=== PATIENT | male | born 1970 | race African-American/Black ===

== ENCOUNTER 2017-07-16 21:13 | Inpatient (IN) ==
[2017-07-17] MEDS ORDERED: ONDANSETRON 4 MG/2 ML VIAL IV STA (00:10)
[2017-07-17] MEDS ORDERED: SODIUM CHLORIDE 0.9% 1,000 ML IV STA (00:10)
[2017-07-17] MEDS ORDERED: MORPHINE 2 MG/1 ML SYRINGE IV STA (00:10)
[2017-07-17] MEDS ORDERED: ONDANSETRON 4 MG/2 ML VIAL ONE (00:39)
[2017-07-17] MEDS ORDERED: MORPHINE 2 MG/1 ML SYRINGE ONE (00:39)
[2017-07-17 01:09] LABS: Basophils % 0.3 % (0.0-0.8); Hematocrit 41.1 VOL% (42.0-52.0); Hemoglobin 13.8 GM/DL (14.0-18.0); Immature Granulocytes % 0.4 %; Immature Granulocytes Absolute 0.05 #; Lymphocytes # 0.6 10*3/uL (1.4-4.0); Lymphocytes % 4.6 % (21.2-54.2); Mean Corpuscular HGB Conc 33.6 GM/DL (32-36); Mean Corpuscular Hemoglobin 30 PG (27-34); Mean Corpuscular Volume 88.6 FL (87-102); Mean Platelet Volume 11.9 FL (9.6-12.0); Monocytes # 0.4 10*3/uL (0.11-0.8); Monocytes % 3.2 % (1.7-12.7); Neutrophils # 12.2 10*3/uL (1.4-7.4); Neutrophils % 91.5 % (38.7-73.9); Platelet Count 203 T/CUMM (130-400); Red Blood Count 4.64 MC/CUMM (3.8-5.5); Red Cell Distribution Width 13.4 % (9.3-17.3); White Blood Count 13.3 T/CUMM (4-12)
[2017-07-17 02:01] LABS: Band Neutrophils 3 % (0-10); Lymphocytes 5 % (20-55); Segmented Neutrophils 91 % (50-85); Total Cells Counted 100
[2017-07-17 02:02] LABS: Hypochromasia 2+; Platelet Estimate Normal
[2017-07-17 03:20] LABS: Albumin 3.8 G/DL (3.4-5.0); Bilirubin,Total 1.1 MG/DL (0.2-1.0); Calcium 8.7 MG/DL (8.5-10.1); Osmolality,Calculated 280.3 MOS/KG (273-304); Potassium 4.1 MMOL/L (3.5-5.1); Total Protein 7.1 G/DL (6.4-8.3)
[2017-07-17] MEDS ORDERED: HYDROmorphone 2 MG/1 ML VIAL IV STA (03:34)
[2017-07-17] MEDS ORDERED: HYDROmorphone 2 MG/1 ML VIAL ONE (03:51)
[2017-07-17] MEDS ORDERED: hydrALAZINE 20 MG/1 ML VIAL IV STA (04:27)
[2017-07-17] MEDS ORDERED: hydrALAZINE 20 MG/1 ML VIAL ONE (04:31)
[2017-07-17] MEDS: SODIUM CHLORIDE 0.9% 1,000 ML IV SCH ×2 (04:51→12:32)
[2017-07-17 06:45] LABS: Basophils % 0.4 % (0.0-0.8); Hematocrit 35.4 VOL% (42.0-52.0); Hemoglobin 11.6 GM/DL (14.0-18.0); Immature Granulocytes % 0.3 %; Immature Granulocytes Absolute 0.03 #; Lymphocytes # 1.5 10*3/uL (1.4-4.0); Mean Corpuscular HGB Conc 32.8 GM/DL (32-36); Mean Corpuscular Hemoglobin 29 PG (27-34); Mean Corpuscular Volume 89.8 FL (87-102); Mean Platelet Volume 11.6 FL (9.6-12.0); Monocytes # 0.5 10*3/uL (0.11-0.8); Monocytes % 5.1 % (1.7-12.7); Neutrophils # 8.5 10*3/uL (1.4-7.4); Neutrophils % 80.2 % (38.7-73.9); Platelet Count 163 T/CUMM (130-400); Red Blood Count 3.94 MC/CUMM (3.8-5.5); Red Cell Distribution Width 13.3 % (9.3-17.3); White Blood Count 10.6 T/CUMM (4-12)
[2017-07-17 07:25] LABS: Albumin 3.3 G/DL (3.4-5.0); Bilirubin,Total 1.2 MG/DL (0.2-1.0); Calcium 8.3 MG/DL (8.5-10.1); Potassium 3.8 MMOL/L (3.5-5.1); Total Protein 6.3 G/DL (6.4-8.3)
[2017-07-17] MEDS: MORPHINE 2 MG/1 ML SYRINGE IV PRN ×2 (08:07→13:56)
[2017-07-17] MEDS ORDERED: PANTOPRAZOLE 40 MG TABLET PO SCH (09:00)
[2017-07-17] MEDS: amLODIPine 10 MG TABLET PO SCH (09:07)
[2017-07-17] MEDS: THIAMINE 100 MG TABLET PO SCH (09:07)
[2017-07-17] MEDS: ENOXAPARIN 40 MG/0.4 ML SYRINGE SUBCUT SCH (09:07)
[2017-07-17] MEDS: FOLIC ACID 1 MG TABLET PO SCH (09:07)
[2017-07-17] MEDS: CLORAZEPATE 7.5 MG TABLET PO SCH ×2 (09:07→21:21)
[2017-07-17] MEDS: MULTIVITAMIN (CENTRUM) TABLET PO SCH (09:07)
[2017-07-17 11:36] LABS: Risk Ratio 2.88
[2017-07-17] MEDS: LISINOPRIL 5 MG TABLET PO SCH (12:15)
[2017-07-17] MEDS: PIPERACILLIN/TAZOBACTAM 3,375 MG in SODIUM CHLORIDE 0.9% 100 ML IV SCH ×2 (12:15→19:19)
[2017-07-17 14:51] LABS: Apearance,Urine CLEAR (Clear); Bilirubin,Urine Negative (Negative); Blood, Urine Negative (Negative); Glucose,Urine (UA) Negative (Negative); Ketones,Urine 80 mg/dL (Negative); Mucus,Urine Occasional /LPF (Occasional); Nitrite,Urine Negative (Negative); Protein,Urine Negative; RBC,Urine <1 /HPF (0-4); Urine Color Yellow (Yellow); Urine Specific Gravity 1.018 (1.001-1.035); Urine Urobilinogen < 2.0 EU/DL (0.2-1.0); WBC,Urine 1 /HPF (0-6)
[2017-07-17] MEDS: HYDROmorphone 2 MG/1 ML VIAL IV PRN ×3 (16:11→22:52)
[2017-07-17] MEDS: ONDANSETRON 4 MG/2 ML VIAL IV PRN ×2 (16:11→23:32)
[2017-07-17] MEDS: POTASSIUM CHLORIDE INJ 10 MEQ in LACTATED RINGERS 1,000 ML IV SCH ×2 (18:33→19:20)
[2017-07-17] MEDS: PANTOPRAZOLE 40 MG TABLET PO SCH (21:21)
[2017-07-18] MEDS: POTASSIUM CHLORIDE INJ 10 MEQ in LACTATED RINGERS 1,000 ML IV SCH ×7 (00:04→20:27)
[2017-07-18] MEDS: HYDROmorphone 2 MG/1 ML VIAL IV PRN ×6 (03:30→23:04)
[2017-07-18] MEDS: ONDANSETRON 4 MG/2 ML VIAL IV PRN ×6 (03:40→23:10)
[2017-07-18] MEDS: PIPERACILLIN/TAZOBACTAM 3,375 MG in SODIUM CHLORIDE 0.9% 100 ML IV SCH ×3 (03:41→20:33)
[2017-07-18 06:01] LABS: Basophils % 0.2 % (0.0-0.8); Eosinophils % 0.2 % (0.00-10.9); Hematocrit 38.1 VOL% (42.0-52.0); Hemoglobin 12.2 GM/DL (14.0-18.0); Immature Granulocytes % 0.5 %; Immature Granulocytes Absolute 0.06 #; Lymphocytes # 0.8 10*3/uL (1.4-4.0); Lymphocytes % 6.1 % (21.2-54.2); Mean Corpuscular Hemoglobin 29 PG (27-34); Mean Corpuscular Volume 91.8 FL (87-102); Mean Platelet Volume 12.4 FL (9.6-12.0); Monocytes # 0.8 10*3/uL (0.11-0.8); Monocytes % 6.5 % (1.7-12.7); Neutrophils # 11.3 10*3/uL (1.4-7.4); Neutrophils % 86.5 % (38.7-73.9); Platelet Count 151 T/CUMM (130-400); Red Blood Count 4.15 MC/CUMM (3.8-5.5); Red Cell Distribution Width 13.4 % (9.3-17.3)
[2017-07-18 06:38] LABS: Albumin 3.5 G/DL (3.4-5.0); Bilirubin,Total 1.4 MG/DL (0.2-1.0); Calcium 8.8 MG/DL (8.5-10.1); Osmolality,Calculated 269.8 MOS/KG (273-304); Total Protein 6.4 G/DL (6.4-8.3)
[2017-07-18] MEDS: amLODIPine 10 MG TABLET PO SCH (08:18)
[2017-07-18] MEDS: CLORAZEPATE 7.5 MG TABLET PO SCH ×2 (08:19→20:32)
[2017-07-18] MEDS: PANTOPRAZOLE 40 MG TABLET PO SCH ×2 (08:19→20:32)
[2017-07-18] MEDS: THIAMINE 100 MG TABLET PO SCH (08:19)
[2017-07-18] MEDS: LISINOPRIL 5 MG TABLET PO SCH (08:19)
[2017-07-18] MEDS: FOLIC ACID 1 MG TABLET PO SCH (08:19)
[2017-07-18] MEDS: ENOXAPARIN 40 MG/0.4 ML SYRINGE SUBCUT SCH (08:19)
[2017-07-18] MEDS: MULTIVITAMIN (CENTRUM) TABLET PO SCH (08:19)
[2017-07-19] MEDS: HYDROmorphone 2 MG/1 ML VIAL IV PRN ×6 (03:02→20:33)
[2017-07-19] MEDS: ONDANSETRON 4 MG/2 ML VIAL IV PRN ×2 (03:04→06:49)
[2017-07-19] MEDS: PIPERACILLIN/TAZOBACTAM 3,375 MG in SODIUM CHLORIDE 0.9% 100 ML IV SCH ×3 (03:05→20:31)
[2017-07-19 06:06] LABS: Basophils # 0.1 10*3/uL (0.0-0.2); Basophils % 0.4 % (0.0-0.8); Eosinophils # 0.2 10*3/uL (0.0-0.87); Eosinophils % 1.6 % (0.00-10.9); Hematocrit 34.3 VOL% (42.0-52.0); Hemoglobin 11.2 GM/DL (14.0-18.0); Immature Granulocytes % 0.5 %; Immature Granulocytes Absolute 0.06 #; Lymphocytes # 1.1 10*3/uL (1.4-4.0); Mean Corpuscular HGB Conc 32.7 GM/DL (32-36); Mean Corpuscular Hemoglobin 29 PG (27-34); Mean Platelet Volume 12.1 FL (9.6-12.0); Monocytes # 0.9 10*3/uL (0.11-0.8); Monocytes % 7.8 % (1.7-12.7); Neutrophils # 9.4 10*3/uL (1.4-7.4); Neutrophils % 80.7 % (38.7-73.9); Platelet Count 145 T/CUMM (130-400); Red Blood Count 3.81 MC/CUMM (3.8-5.5); Red Cell Distribution Width 13.6 % (9.3-17.3); White Blood Count 11.7 T/CUMM (4-12)
[2017-07-19 06:15] LABS: PT Patient Result 10.6 SECS; Partial Thromboplastin Time 29.6 SECS (0-40)
[2017-07-19] MEDS: POTASSIUM CHLORIDE INJ 10 MEQ in LACTATED RINGERS 1,000 ML IV SCH ×3 (06:40→09:40)
[2017-07-19 06:42] LABS: Albumin 2.9 G/DL (3.4-5.0); Bilirubin,Direct 0.22 MG/DL (0.0-0.20); Bilirubin,Indirect 0.8 MG/DL (0.0-1.0); Calcium 8.6 MG/DL (8.5-10.1); Osmolality,Calculated 268.8 MOS/KG (273-304); Potassium 3.9 MMOL/L (3.5-5.1)
[2017-07-19] MEDS: FOLIC ACID 1 MG TABLET PO SCH (08:22)
[2017-07-19] MEDS: THIAMINE 100 MG TABLET PO SCH (08:22)
[2017-07-19] MEDS: CLORAZEPATE 7.5 MG TABLET PO SCH ×2 (08:22→20:33)
[2017-07-19] MEDS: amLODIPine 10 MG TABLET PO SCH (08:22)
[2017-07-19] MEDS: MULTIVITAMIN (CENTRUM) TABLET PO SCH (08:22)
[2017-07-19] MEDS: PANTOPRAZOLE 40 MG TABLET PO SCH ×2 (08:22→20:32)
[2017-07-19] MEDS: LISINOPRIL 5 MG TABLET PO SCH (08:22)
[2017-07-19] MEDS ORDERED: FOLIC ACID 1 MG TABLET PO SCH (09:00)
[2017-07-19] MEDS ORDERED: DEXTROSE 50% 25 GM/50 ML VIAL IV PRN (09:22)
[2017-07-19] MEDS: DEXTROSE 5% LACTATED RINGERS 1,000 ML IV SCH ×2 (11:10→15:01)
[2017-07-20] MEDS: ONDANSETRON 4 MG/2 ML VIAL IV PRN ×2 (00:04→03:14)
[2017-07-20] MEDS: DEXTROSE 5% LACTATED RINGERS 1,000 ML IV SCH ×2 (00:55→16:02)
[2017-07-20] MEDS: HYDROmorphone 2 MG/1 ML VIAL IV PRN ×7 (03:12→20:50)
[2017-07-20] MEDS: PIPERACILLIN/TAZOBACTAM 3,375 MG in SODIUM CHLORIDE 0.9% 100 ML IV SCH (03:15)
[2017-07-20 06:50] LABS: Basophils % 0.2 % (0.0-0.8); Eosinophils # 0.1 10*3/uL (0.0-0.87); Eosinophils % 1.3 % (0.00-10.9); Hematocrit 32.7 VOL% (42.0-52.0); Hemoglobin 11.2 GM/DL (14.0-18.0); Immature Granulocytes % 0.3 %; Immature Granulocytes Absolute 0.03 #; Lymphocytes # 1.1 10*3/uL (1.4-4.0); Lymphocytes % 11.8 % (21.2-54.2); Mean Corpuscular HGB Conc 34.3 GM/DL (32-36); Mean Corpuscular Hemoglobin 30 PG (27-34); Mean Corpuscular Volume 88.1 FL (87-102); Mean Platelet Volume 11.6 FL (9.6-12.0); Monocytes # 0.8 10*3/uL (0.11-0.8); Monocytes % 9.2 % (1.7-12.7); Neutrophils % 77.2 % (38.7-73.9); Platelet Count 134 T/CUMM (130-400); Red Blood Count 3.71 MC/CUMM (3.8-5.5); Red Cell Distribution Width 12.7 % (9.3-17.3); White Blood Count 9.1 T/CUMM (4-12)
[2017-07-20 07:31] LABS: Calcium 8.8 MG/DL (8.5-10.1); Osmolality,Calculated 266.1 MOS/KG (273-304); Potassium 3.6 MMOL/L (3.5-5.1)
[2017-07-20] MEDS: CLORAZEPATE 7.5 MG TABLET PO SCH ×2 (09:27→20:50)
[2017-07-20] MEDS: LISINOPRIL 5 MG TABLET PO SCH (09:27)
[2017-07-20] MEDS: THIAMINE 100 MG TABLET PO SCH (09:27)
[2017-07-20] MEDS: MULTIVITAMIN (CENTRUM) TABLET PO SCH (09:27)
[2017-07-20] MEDS: PANTOPRAZOLE 40 MG TABLET PO SCH ×2 (09:27→20:50)
[2017-07-20] MEDS: amLODIPine 10 MG TABLET PO SCH (09:27)
[2017-07-20] MEDS: FOLIC ACID 1 MG TABLET PO SCH (09:28)
[2017-07-20] MEDS ORDERED: SODIUM PHOSPHATE ENEMA 133 ML BOTTLE RECTAL PRN (11:51)
[2017-07-20] MEDS: POLYETHYLENE GLYCOL POWDER 17 GM PACK PO SCH ×2 (16:29→20:50)
[2017-07-21] MEDS: HYDROmorphone 2 MG/1 ML VIAL IV PRN ×7 (00:29→21:10)
[2017-07-21] MEDS: LORazepam 1 MG TABLET PO PRN ×3 (00:30→21:10)
[2017-07-21 05:33] LABS: Basophils % 0.3 % (0.0-0.8); Eosinophils % 0.6 % (0.00-10.9); Hematocrit 33.9 VOL% (42.0-52.0); Hemoglobin 11.3 GM/DL (14.0-18.0); Immature Granulocytes % 0.6 %; Immature Granulocytes Absolute 0.04 #; Lymphocytes # 0.9 10*3/uL (1.4-4.0); Mean Corpuscular HGB Conc 33.3 GM/DL (32-36); Mean Corpuscular Hemoglobin 29 PG (27-34); Mean Corpuscular Volume 88.3 FL (87-102); Mean Platelet Volume 11.4 FL (9.6-12.0); Monocytes # 0.7 10*3/uL (0.11-0.8); Monocytes % 11.3 % (1.7-12.7); Neutrophils # 4.8 10*3/uL (1.4-7.4); Neutrophils % 73.2 % (38.7-73.9); Platelet Count 161 T/CUMM (130-400); Red Blood Count 3.84 MC/CUMM (3.8-5.5); Red Cell Distribution Width 12.5 % (9.3-17.3); White Blood Count 6.6 T/CUMM (4-12)
[2017-07-21] MEDS: DEXTROSE 5% LACTATED RINGERS 1,000 ML IV SCH ×4 (06:55→21:10)
[2017-07-21] MEDS: MULTIVITAMIN (CENTRUM) TABLET PO SCH (09:57)
[2017-07-21] MEDS: amLODIPine 10 MG TABLET PO SCH (09:57)
[2017-07-21] MEDS: CLORAZEPATE 7.5 MG TABLET PO SCH ×2 (09:57→21:10)
[2017-07-21] MEDS: POLYETHYLENE GLYCOL POWDER 17 GM PACK PO SCH ×3 (09:57→21:11)
[2017-07-21] MEDS: THIAMINE 100 MG TABLET PO SCH (09:58)
[2017-07-21] MEDS: PANTOPRAZOLE 40 MG TABLET PO SCH ×2 (09:58→21:10)
[2017-07-21] MEDS: LISINOPRIL 5 MG TABLET PO SCH (09:58)
[2017-07-21] MEDS: FOLIC ACID 1 MG TABLET PO SCH (09:58)
[2017-07-22] MEDS: LORazepam 1 MG TABLET PO PRN ×2 (03:50→12:19)
[2017-07-22] MEDS: HYDROmorphone 2 MG/1 ML VIAL IV PRN ×3 (03:50→12:19)
[2017-07-22] MEDS: THIAMINE 100 MG TABLET PO SCH (08:42)
[2017-07-22] MEDS: FOLIC ACID 1 MG TABLET PO SCH (08:42)
[2017-07-22] MEDS: amLODIPine 10 MG TABLET PO SCH (08:42)
[2017-07-22] MEDS: LISINOPRIL 5 MG TABLET PO SCH (08:43)
[2017-07-22] MEDS: PANTOPRAZOLE 40 MG TABLET PO SCH ×2 (08:43→21:12)
[2017-07-22] MEDS: MULTIVITAMIN (CENTRUM) TABLET PO SCH (08:43)
[2017-07-22] MEDS: CLORAZEPATE 7.5 MG TABLET PO SCH (08:44)
[2017-07-22] MEDS: POLYETHYLENE GLYCOL POWDER 17 GM PACK PO SCH ×3 (08:44→21:12)
[2017-07-22] MEDS: DEXTROSE 5% LACTATED RINGERS 1,000 ML IV SCH ×3 (10:16→16:03)
[2017-07-23] MEDS: DEXTROSE 5% LACTATED RINGERS 1,000 ML IV SCH ×4 (01:10→21:40)
[2017-07-23 06:29] LABS: Basophils % 0.4 % (0.0-0.8); Eosinophils # 0.1 10*3/uL (0.0-0.87); Eosinophils % 1.8 % (0.00-10.9); Hematocrit 32.9 VOL% (42.0-52.0); Hemoglobin 11.2 GM/DL (14.0-18.0); Immature Granulocytes % 0.2 %; Immature Granulocytes Absolute 0.01 #; Lymphocytes # 1.4 10*3/uL (1.4-4.0); Lymphocytes % 25.1 % (21.2-54.2); Mean Corpuscular Hemoglobin 30 PG (27-34); Mean Corpuscular Volume 86.6 FL (87-102); Mean Platelet Volume 11.1 FL (9.6-12.0); Monocytes # 0.7 10*3/uL (0.11-0.8); Neutrophils # 3.5 10*3/uL (1.4-7.4); Neutrophils % 60.5 % (38.7-73.9); Platelet Count 202 T/CUMM (130-400); Red Cell Distribution Width 12.8 % (9.3-17.3); White Blood Count 5.7 T/CUMM (4-12)
[2017-07-23 06:37] LABS: INR 1.1; PT Patient Result 11.4 SECS; Partial Thromboplastin Time 28.3 SECS (0-40)
[2017-07-23 06:54] LABS: Albumin 3.1 G/DL (3.4-5.0); Bilirubin,Direct 0.13 MG/DL (0.0-0.20); Bilirubin,Indirect 0.5 MG/DL (0.0-1.0); Bilirubin,Total 0.6 MG/DL (0.2-1.0); Calcium 9.1 MG/DL (8.5-10.1); Osmolality,Calculated 274.5 MOS/KG (273-304); Potassium 3.1 MMOL/L (3.5-5.1); Total Protein 6.7 G/DL (6.4-8.3)
[2017-07-23 07:08] LABS: Eosinophils 3 % (0-10); Hypochromasia 1+; Lymphocytes 25 % (20-55); Ovalocytes Slight; Platelet Estimate Adequate; Segmented Neutrophils 55 % (50-85); Total Cells Counted 100
[2017-07-23] MEDS: MULTIVITAMIN (CENTRUM) TABLET PO SCH (08:08)
[2017-07-23] MEDS: PANTOPRAZOLE 40 MG TABLET PO SCH ×2 (08:09→21:42)
[2017-07-23] MEDS: amLODIPine 10 MG TABLET PO SCH (08:09)
[2017-07-23] MEDS: POLYETHYLENE GLYCOL POWDER 17 GM PACK PO SCH ×3 (08:09→21:42)
[2017-07-23] MEDS: LISINOPRIL 5 MG TABLET PO SCH (08:09)
[2017-07-23] MEDS: THIAMINE 100 MG TABLET PO SCH (08:09)
[2017-07-23] MEDS: FOLIC ACID 1 MG TABLET PO SCH (08:09)
[2017-07-23] MEDS ORDERED: POTASSIUM CHLORIDE 20 MEQ TABLET PO ONE (09:40)
[2017-07-23] MEDS ORDERED: LISINOPRIL 5 MG TABLET PO ONE (11:34)
[2017-07-23] MEDS ORDERED: LISINOPRIL 5 MG TABLET PO SCH (12:00)
[2017-07-24] MEDS: DEXTROSE 5% LACTATED RINGERS 1,000 ML IV SCH (00:01)
[2017-07-24 07:25] VITALS: BP 130/93
[2017-07-24] MEDS: PANTOPRAZOLE 40 MG TABLET PO SCH (08:48)
[2017-07-24] MEDS: MULTIVITAMIN (CENTRUM) TABLET PO SCH (08:48)
[2017-07-24] MEDS: amLODIPine 10 MG TABLET PO SCH (08:48)
[2017-07-24] MEDS: FOLIC ACID 1 MG TABLET PO SCH (08:48)
[2017-07-24] MEDS: POLYETHYLENE GLYCOL POWDER 17 GM PACK PO SCH (08:49)
[2017-07-24] MEDS: THIAMINE 100 MG TABLET PO SCH (08:49)
[2017-07-24] MEDS ORDERED: LISINOPRIL 10 MG TABLET PO SCH (09:00)
== END 2017-07-24 12:00 | disposition home or self-care (01) | DRG 440 ==
LOC: N.ED 21:13 → SUATTDRO 07-17 04:10 → N.EDINP 07-17 04:10 → N.5E 07-17 05:03
PROVIDERS: ADMIT Internal Medicine; ATTEND Internal Medicine